=== PATIENT | female | born 1955 | race Caucasian/White ===

== ENCOUNTER 2016-08-30 19:10 | Emergency (ER) | payer BC ==
[2016-08-30 19:33] VITALS: BP 152/71
--- NOTE | 2016-08-30 19:55 | UC ---
Skin Complaint HPI - HPI Summary HPI Summary: pt c/o sudden onset of diffuse papular rash that she has had in the past . - History of Current Complaint Chief Complaint: UCSkin Time Seen by Provider: 08/30/16 19:46 Stated Complaint: RASH Hx Obtained From: Patient Hx Last Menstrual Period: 2008 ?: No Onset/Duration: Sudden Onset, Lasting Days Skin Exposure Onset/Duration: Days Ago Timing: Constant Onset Severity: Mild Current Severity: Mild Location: Diffuse Character: Pruritus Aggravating: Touch Alleviating: Other - prednisone Associated Signs & Symptoms: Positive: Rash - Allergy/Home Medications Allergies/Adverse Reactions: Allergies Allergy/AdvReac Type Severity Reaction Status Date / Time Meloxicam [From [employer]] Allergy Facial Verified 08/30/16 19:33 Redness/Flushing Methotrexate Allergy See Comment Verified 08/30/16 19:33 environmental allergies Allergy Congestion Uncoded 08/30/16 19:33 Review of Systems Constitutional: Negative Skin: Rash Eyes: Negative ENT: Negative Respiratory: Negative Cardiovascular: Negative Gastrointestinal: Negative Genitourinary: Negative Motor: Negative Neurovascular: Negative Musculoskeletal: Negative Neurological: Negative Psychological: Negative All Other Systems Reviewed And Are Negative: Yes PMH/Surg Hx/FS Hx/Imm Hx Previously Healthy: Yes Endocrine History Of: Reports: Thyroid Disease Denies: Diabetes Cardiovascular History Of: Denies: Hypertension - Surgical History Surgical History: Yes Surgery Procedure, Year, and Place: Sinus surgery X 2, [facility] early 1989's, and 2003 approx. ([facility]) per pt. - Family History Known Family History: Positive: Hypertension - Social History Alcohol Use: Occasionally Substance Use Type: None Smoking Status (MU): Former Smoker When Did the Patient Quit Smoking/Using Tobacco: 40 years ago Physical Exam Triage Information Reviewed: Yes Appearance: Well-Appearing Vital Signs: Initial Vital Signs Temp 99.1 F 08/30/16 19:25 Pulse 64 08/30/16 19:25 Resp 16 08/30/16 19:25 BP 152/71 08/30/16 19:25 Pulse Ox 100 08/30/16 19:25 Vital Signs Reviewed: Yes Eye Exam: Normal Respiratory Exam: Other Respiratory: Positive: No respiratory distress Musculoskeletal Exam: Normal Neurological Exam: Normal Psychological Exam: Normal Skin Exam: Other Skin: Positive: rashes - diffuse, erythemic, papular rash, Course/Dx - Course Course Of Treatment: I discussed with the pt her elevated BP at todays visit. I have referred her to her PCP for follow up. Pt verbalized understanding and agreed to plan of care. - Differential Diagnoses - Skin Complaint Differential Diagnoses: Contact Dermatitis, Other - elevated blood pressure - Diagnoses Provider Diagnoses: contact dermatitis. elevated blood pressure. Discharge - Discharge Plan Condition: Stable Disposition: HOME Prescriptions: predniSONE TAB* [Deltasone TAB*] 40 mg PO DAILY #8 tab Patient Education Materials: Contact Dermatitis (ED) Referrals: Rubio Quiroz MD [Primary Care Provider] - Additional Instructions: Please follow up with your PCP or return to clinic as needed
== END 2016-08-30 20:15 | disposition home or self-care (01) ==
LOC: UCCORT 19:10
DX: L25.9 Unspecified contact dermatitis, unspecified cause (principal); R03.0 Elevated blood-pressure reading, without diagnosis of hypertension; Z88.6 Allergy status to analgesic agent; Z88.8 Allergy status to other drugs, medicaments and biological substances; Z87.891 Personal history of nicotine dependence
CPT/HCPCS: 99212; G0463

== ENCOUNTER 2017-12-23 15:57 | Emergency (ER) | payer BC, OTHER ==
[2017-12-23 16:30] VITALS: BP 123/59
--- NOTE | 2017-12-23 17:00 | UC ---
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 Has significant hx of sinus infections and has sx now. has had sinus surgery x2. uses flonase. + pain when bending fwd. + PND and congestion. mild cough. no wheezing. feels mildly feverish today. - History of Current Complaint Chief Complaint: UCRespiratory Stated Complaint: SINUS COMPLAINT Time Seen by Provider: 12/23/17 16:47 Hx Last Menstrual Period: 2008 Pain Intensity: 4 - Allergies/Home Medications Allergies/Adverse Reactions: Allergies Allergy/AdvReac Type Severity Reaction Status Date / Time clarithromycin [From Biaxin] Allergy Rash Verified 12/23/17 16:38 meloxicam [From Mobic] Allergy Facial Verified 12/23/17 16:38 Redness/Flushing methotrexate AdvReac See Comment Verified 12/23/17 16:38 environmental allergies Allergy Congestion Uncoded 12/23/17 16:38 Home Medications: Home Medications Ibuprofen TAB* [Motrin TAB* 400 MG] 400 mg PO ONCE PRN 12/23/17 [History Confirmed 12/23/17] Mesaline 2 tab PO DAILY 12/23/17 [History Confirmed 12/23/17] PMH/Surg Hx/FS Hx/Imm Hx Previously Healthy: Yes - Surgical History Surgical History: Yes Surgery Procedure, Year, and Place: Sinus surgery X 2, [facility] early 1989's, and 2003 approx. ([facility]) per pt. - Family History Known Family History: Positive: Hypertension - Social History Alcohol Use: Weekly Substance Use Type: None Smoking Status (MU): Former Smoker When Did the Patient Quit Smoking/Using Tobacco: 40 years ago Review of Systems Constitutional: Negative Skin: Negative Eyes: Negative ENT: Sinus Congestion, Sinus Pain/Tenderness Respiratory: Negative, Cough Cardiovascular: Negative Gastrointestinal: Negative Genitourinary: Negative Motor: Negative Neurovascular: Negative Musculoskeletal: Negative Neurological: Negative Psychological: Negative Is Patient Immunocompromised?: No All Other Systems Reviewed And Are Negative: Yes Physical Exam Triage Information Reviewed: Yes Appearance: Well-Appearing, No Pain Distress, Well-Nourished - very pleasant Vital Signs: Initial Vital Signs Temp 99.5 F 12/23/17 16:25 Pulse 64 12/23/17 16:25 Resp 16 12/23/17 16:25 BP 123/59 12/23/17 16:25 Pulse Ox 99 12/23/17 16:25 Vital Signs Reviewed: Yes Eye Exam: Normal ENT: Positive: Pharyngeal erythema - +PND, no exudate., Nasal congestion, Sinus tenderness - B/L frontal and maxillary Dental Exam: Normal Neck exam: Normal Neck: Positive: Supple, Nontender, No Lymphadenopathy, Other: - FROM. Negative : Nuchal Rigidity Respiratory Exam: Normal Respiratory: Positive: Lungs clear, Normal breath sounds, No respiratory distress, No accessory muscle use. Negative: Crackles, Rhonchi, Stridor Cardiovascular Exam: Normal Cardiovascular: Positive: RRR, No Murmur, Pulses Normal Abdomen Description: Positive: Nontender, Soft Musculoskeletal Exam: Normal Neurological Exam: Normal Psychological Exam: Normal Skin Exam: Normal Throat Pain/Nasal Course/Dx - Differential Dx/Diagnosis Differential Diagnosis/HQI/PQRI: Laryngitis, Pharyngitis, Sinusitis, URI Provider Diagnoses: sinusitis Discharge - Sign-Out/Discharge Documenting (check all that apply): Discharge/Admit/Transfer - Discharge Plan Condition: Stable Disposition: HOME Prescriptions: Amoxicillin/Clavulanate TAB* [Augmentin TAB 875*] 875 mg PO BID #20 tab Patient Education Materials: Sinusitis (ED) Referrals: Rubio Quiroz MD [Primary Care Provider] - If Needed Additional Instructions: -Make sure to take a probiotic daily while on antibiotics to help prevent a potential complication of antibiotic use called c diff. Some well known brands that can be found OTC are florastor, align and [employer] [facility]. Make sure to complete the entire prescription unless advised otherwise by your health care provider. - Billing Disposition and Condition Condition: STABLE Disposition: Home
== END 2017-12-23 17:21 | disposition home or self-care (01) ==
LOC: UCCORT 15:57
DX: J32.9 Chronic sinusitis, unspecified (principal); Z88.6 Allergy status to analgesic agent; Z88.1 Allergy status to other antibiotic agents; Z88.8 Allergy status to other drugs, medicaments and biological substances; Z87.891 Personal history of nicotine dependence
CPT/HCPCS: 99212; G0463

== ENCOUNTER 2018-07-06 07:52 | Emergency (ER) | payer BC, OTHER ==
--- OUTSIDE RECORDS SUMMARY | 2018-07-06 08:00 | XMS REPORT ---
:1955 Author Organization [facility] Address [address] [place] [address] Care Team Providers Name Role Phone Jocelyn Rooney Unavailable Unavailable PROBLEMS Type Condition ICD9-CM [id number] Onset Condition SNOMED Code Code Code Dates Status Problem Other abnormal and R92.8 Active 660890704 inconclusive findings on diagnostic imaging of breast Problem Other specified N90.89 Active 48383156 noninflammatory disorders of vulva and perineum Problem Family history of Z80.8 Active 601668294 malignant neoplasm of other organs or systems Problem Cystocele, N81.10 Active 167976720 unspecified Problem Rectocele N81.6 Active [id number] ALLERGIES No Information ENCOUNTERS Encounter Location Date Diagnosis [facility] [address], OBGYN [place], [place] [id number] [facility] [address] May, OBGYN [place], [place] [id number] [facility] [address], Other abnormal and OBGYN [facility], inconclusive findings on [place] [id number] diagnostic imaging of breast R92.8 [facility] [address], OBGYN [place], [place] [id number] [facility] [address] May, Other specified OBGYN [facility], noninflammatory disorders [place] [id number] of vulva and perineum N90.89 [facility] [address] 30 Apr, 2018 Other specified OBGYN [facility], noninflammatory disorders [place] [id number] of vulva and perineum N90.89 [facility] [address] 20 Apr, 2018 Inconclusive mammogram OBGYN [facility], R92.2 [place] [id number] [facility] [address] 06 Apr, 2018 Encounter for OBGYN [facility], gynecological examination [place] [id number] (general) (routine) with abnormal findings Z01.411 ; Encounter for screening for malignant neoplasm of cervix Z12.4 ; Encounter for screening for malignant neoplasm of colon Z12.11 ; Encounter for screening mammogram for malignant neoplasm of breast Z12.31 ; Other specified noninflammatory disorders of vulva and perineum N90.89 ; Cystocele, unspecified N81.10 ; Rectocele N81.6 and Family history of malignant neoplasm of other organs or systems Z80.8 IMMUNIZATIONS No Known Immunizations SOCIAL HISTORY Never Assessed REASON FOR REFERRAL FUNCTIONAL STATUS PLAN OF CARE VITAL SIGNS MEDICATIONS Unknown Medications PROCEDURES No Known procedures RESULTS No Results REASON FOR VISIT Update Demographics - Personal Info Insurance Providers [facility] Patient Patient Patient Patient Patient Subscriber Subscriber Subscriber Group Insurance Plan Plan Plan Plan ID Relationship Address Phone Name Date of ID Name Date of No Type Insurance Insurance Insurance Coverage to Subscriber Address Phone Name Dates [place] [phone] Daphney [place] [id number] Plan for [address] Plan for [facility] [employer] Employees [place] Employees [id number] MEDICAL (GENERAL) HISTORY Type Description Date Medical History Hypothryroidism Medical History Ulcerative Colitis Medical History [facility] Medical History Cold sore Surgical History 1986 Surgical History endoscopic sinus surgery x2 Surgical History Colonoscopy 10/2017 Hospitalization History See above
[2018-07-06 08:08] VITALS: BP 153/68
--- NOTE | 2018-07-06 08:42 | UC ---
Throat Pain/Nasal Rylan HPI - HPI Summary HPI Summary: sinus pain and pressure x 7 days nasal congestion and post nasal drip for 4 weeks mild cough, fever this morning hx of chronic sinusitis - History of Current Complaint Chief Complaint: UCRespiratory Stated Complaint: COUGH THROAT LEFT EAR Time Seen by Provider: 07/06/18 08:31 Hx Obtained From: Patient Hx Last Menstrual Period: 2008 ?: No Onset/Duration: Gradual Onset, Lasting Weeks - 7, Still Present, Worse Since - today Severity: Moderate Pain Intensity: 1 Cough: Nonproductive Associated Signs & Symptoms: Positive: Sinus Discomfort, Nasal Discharge, Fever. Negative: Wheezing, Hoarseness, Vomiting, Rash - Allergies/Home Medications Allergies/Adverse Reactions: Allergies Allergy/AdvReac Type Severity Reaction Status Date / Time clarithromycin [From Biaxin] Allergy Rash Verified 07/06/18 08:00 meloxicam [From Mobic] Allergy Facial Verified 07/06/18 08:00 Redness/Flushing methotrexate AdvReac See Comment Verified 07/06/18 08:00 environmental allergies Allergy Congestion Uncoded 07/06/18 08:00 Home Medications: Home Medications Fexofenadine (NF) [Chelsea 180 (NF)] 180 mg PO DAILY 07/06/18 [History Confirmed 07/06/18] PMH/Surg Hx/FS Hx/Imm Hx Previously Healthy: Yes - Surgical History Surgical History: Yes Surgery Procedure, Year, and Place: Sinus surgery X 2, [facility] early 1989's, and 2003 approx. ([facility]) per pt. 1986 - Family History Known Family History: Positive: Hypertension - Social History Alcohol Use: Occasionally Substance Use Type: None Smoking Status (MU): Former Smoker When Did the Patient Quit Smoking/Using Tobacco: 40 years ago Review of Systems All Other Systems Reviewed And Are Negative: Yes Constitutional: Positive: Fever, Chills, Fatigue Skin: Positive: Negative Eyes: Positive: Negative ENT: Positive: Sore Throat, Ear Ache, Nasal Discharge, Sinus Congestion, Sinus Pain/Tenderness Respiratory: Positive: Cough Cardiovascular: Positive: Negative Is Patient Immunocompromised?: No Physical Exam Triage Information Reviewed: Yes Appearance: Well-Appearing, No Pain Distress, Well-Nourished Vital Signs: Initial Vital Signs Temp 99 F 07/06/18 08:03 Pulse 75 07/06/18 08:03 Resp 18 07/06/18 08:03 BP 153/68 07/06/18 08:03 Pulse Ox 100 07/06/18 08:03 Vital Signs Reviewed: Yes Eye Exam: Normal Eyes: Positive: Conjunctiva Clear ENT: Positive: Normal ENT inspection, Hearing grossly normal, Pharynx normal, Nasal congestion, Nasal drainage, TMs normal, Sinus tenderness. Negative: TM bulging, TM dull, TM red, Tonsillar swelling, Tonsillar exudate Neck: Positive: Supple, Nontender, No Lymphadenopathy Respiratory: Positive: Chest non-tender, Lungs clear, Normal breath sounds, No respiratory distress Cardiovascular: Positive: RRR, No Murmur, Pulses Normal Skin Exam: Normal Throat Pain/Nasal Course/Dx - Differential Dx/Diagnosis Provider Diagnosis: Sinusitis Discharge - Sign-Out/Discharge Documenting (check all that apply): Patient Departure All imaging exams completed and their final reports reviewed: No Studies - Discharge Plan Condition: Stable Disposition: HOME Prescriptions: Amoxicillin/Clavulanate TAB* [Augmentin TAB 875*] 875 mg PO BID #20 tab Patient Education Materials: Sinusitis (ED) Referrals: Rubio Quiroz MD [Primary Care Provider] - If Needed - Billing Disposition and Condition Condition: STABLE Disposition: Home
== END 2018-07-06 08:45 | disposition home or self-care (01) ==
LOC: UCCORT 07:52
DX: J32.9 Chronic sinusitis, unspecified (principal); Z88.1 Allergy status to other antibiotic agents; Z88.6 Allergy status to analgesic agent; Z88.8 Allergy status to other drugs, medicaments and biological substances; Z87.891 Personal history of nicotine dependence
CPT/HCPCS: 99212; G0463

== ENCOUNTER 2019-05-14 19:29 | Emergency (ER) | payer BC ==
[2019-05-14 20:14] VITALS: BP 138/70
--- NOTE | 2019-05-14 21:04 | ED ---
Skin Complaint - HPI Summary HPI Summary: 63 yo WF p/w right thumb was right thumb abrasion scraped it against the side of a plastic container. However,she notes blister like small raised skin lesions around the abrasion that is becoming mildly itchy. Patient does have history of genital herpes and is on chronic suppressive therapy acyclovir 400 mg daily. - History of Current Complaint Chief Complaint: UCSkin Time Seen by Provider: 05/14/19 19:52 Stated Complaint: RIGHT THUMB LACERATION Hx Obtained From: Patient Hx Last Menstrual Period: 2008 Onset/Duration: Started Weeks Ago Skin Exposure Onset/Duration: Weeks Ago - 2 Timing: Lasting Weeks Onset Severity: Moderate Pain Intensity: 0 - Allergy/Home Medications Allergies/Adverse Reactions: Allergies Allergy/AdvReac Type Severity Reaction Status Date / Time clarithromycin [From Biaxin] Allergy Rash Verified 05/14/19 20:07 meloxicam [From Mobic] Allergy Facial Verified 05/14/19 20:07 Redness/Flushing methotrexate AdvReac See Comment Verified 05/14/19 20:07 environmental allergies Allergy Congestion Uncoded 05/14/19 20:07 PMH/Surg Hx/FS Hx/Imm Hx Previously Healthy: Yes Endocrine/Hematology History: Reports: Hx Thyroid Disease - hypothyroid Denies: Hx Diabetes, Hx Systemic Lupus Erythematosus Cardiovascular History: Denies: Hx Hypertension Musculoskeletal History: Denies: Hx Rheumatoid Arthritis - Cancer History Hx Chemotherapy: No - Surgical History Surgery Procedure, Year, and Place: Sinus surgery X 2, [facility] early 1989's, and 2003 approx. ([facility]) per pt. 1986 Infectious Disease History: No Infectious Disease History: Denies: Traveled Outside the [place] in Last 30 Days - Family History Known Family History: Positive: Hypertension, Non-Contributory - Social History Alcohol Use: Weekly Substance Use Type: Reports: None Smoking Status (MU): Former Smoker Review of Systems Constitutional: Negative Eyes: Negative ENT: Negative Cardiovascular: Negative Respiratory: Negative Gastrointestinal: Negative Musculoskeletal: Negative Skin: Other - see HPI Neurological: Negative All Other Systems Reviewed And Are Negative: Yes Physical Exam - Summary Physical Exam Summary: Appearance: Positive: No Pain Distress Skin: Positive: Warm, herpetic cristian lesions around right thumb abrasion that is healing Head/Face: Positive: Normal Head/Face Inspection Eyes: :Normal ENT: Normal ENT inspection Neck: Positive: Supple Respiratory/Lung Sounds: Positive: Clear to Auscultation. Cardiovascular: Positive: Normal, RRR, S1, S2 Abdomen : soft, NT/ND Musculoskeletal: Positive: Normal, Strength/ROM Intact Neurological: Positive: CN 2-12 grossly intact Triage Information Reviewed: Yes Vital Signs On Initial Exam: Initial Vitals Temp Pulse Resp BP Pulse Ox 36.1 C 60 14 138/70 97 05/14/19 20:09 05/14/19 20:09 05/14/19 20:09 05/14/19 20:09 05/14/19 20:09 Diagnostics - Vital Signs Vital Signs Temp Pulse Resp BP Pulse Ox 05/14/19 20:09 36.1 C 60 14 138/70 97 - Laboratory Lab Statement: Any lab studies that have been ordered have been reviewed, and results considered in the medical decision making process. Course/Dx - Course Assessment/Plan: Herpetic cristian on right thumb acyclovir 400 mg 3 times a day 7 days and acyclovir topical ointment 4 times a day for 5 days. - Diagnoses Provider Diagnoses: Herpetic cristian Discharge ED - Sign-Out/Discharge Documenting (check all that apply): Patient Departure All imaging exams completed and their final reports reviewed: No Studies - Discharge Plan Condition: Stable Disposition: HOME Prescriptions: Acyclovir OINT 5%(NF) [Zovirax Oint 5%(NF)] 1 applic TOPICAL .SIX TIMES A DAY 7 Days #1 tube Acyclovir* [Zovirax 400 MG TAB*] 400 mg PO TID 7 Days #21 tab Referrals: Rubio Quiroz MD [Primary Care Provider] - - Billing Disposition and Condition Condition: STABLE Disposition: Home
== END 2019-05-14 21:04 | disposition home or self-care (01) ==
LOC: UCCORT 19:29
DX: B00.89 Other herpesviral infection (principal); Z87.891 Personal history of nicotine dependence; Z88.1 Allergy status to other antibiotic agents; Z88.6 Allergy status to analgesic agent; Z88.8 Allergy status to other drugs, medicaments and biological substances; Z91.09 Other allergy status, other than to drugs and biological substances
CPT/HCPCS: 99212; G0463